=== PATIENT | female | born 1960 | race Caucasian/White ===

== ENCOUNTER 2016-11-04 19:04 | Emergency (ER) | payer OTHER ==
[~2016-11-04] VITALS: Ht 170.2 cm; Wt 127.0 kg
[~2016-11-04 19:04] MED LIST: HYDROCODON-ACE1 EAC7 PO; NAPROXEN500 MG PO
[2016-11-04] MEDS ORDERED: MEDROL DOSEPAK4 MG PO (21:09)
[2016-11-04] MEDS ORDERED: ATARAX,VISTARIL25 MG PO (21:09)
[2016-11-04] MEDS ORDERED: ELIMITE 5% CREA60 GM TP (21:09)
[2016-11-04 21:24] VITALS: BP 179/86
== END 2016-11-04 21:24 | disposition home or self-care (01) ==
LOC: RME 19:04 → EME 19:04 → RME 21:24
DX: L30.9 Dermatitis, unspecified (principal); I10 Essential (primary) hypertension; J45.909 Unspecified asthma, uncomplicated; Z88.1 Allergy status to other antibiotic agents
CPT/HCPCS: 99281; 99283